=== PATIENT | female | born 1995 | race Native Hawaiian/Other Pacific Islander ===

== ENCOUNTER → 2018-11-03 | Outpatient (CLI) | payer OTHER, BC ==
[~2018-11-03] MED LIST: DOCU100 PO; HPA LANOLIN40 GM TP; IBUP800 PO; OXYACE5T PO; Verotin-Gr Cap1 EACH PO
[2018-11-06 06:07] LABS: CHLAMYDIA TRACHOMATIS, NAA Negative (Negative); NEISSERIA GONORRHOEAE, NAA Negative (Negative)
== END | disposition home or self-care (01) ==
LOC: LAB 11:20 → LAB SHORT 11:20
PROVIDERS: Advanced Practice Midwife
DX: Z11.3 Encounter for screening for infections with a predominantly sexual mode of transmission (principal)
CPT/HCPCS: 87491; 87591

== ENCOUNTER 2019-01-15 23:04 | Emergency (ER) | payer OTHER, BC ==
[~2019-01-15] VITALS: Ht 167.6 cm; Wt 79.8 kg
== END 2019-01-16 01:10 | disposition home or self-care (01) ==
LOC: ER 23:04
DX: S61.011A Laceration without foreign body of right thumb without damage to nail, initial encounter (principal); W25.XXXA Contact with sharp glass, initial encounter
CPT/HCPCS: 12001; 90471; 90714; 99282-25

== ENCOUNTER → 2019-01-17 | Outpatient (CLI) | payer OTHER, BC ==
[2019-01-18 10:28] LABS: Candida species (DNA Probe) Negative (NEGATIVE); G. vaginalis (DNA Probe) Positive (NEGATIVE); T. vaginalis (DNA Probe) Negative (NEGATIVE)
== END | disposition home or self-care (01) ==
LOC: LAB 14:49 → LAB SHORT 14:49
PROVIDERS: Advanced Practice Midwife
DX: N76.0 Acute vaginitis (principal)
CPT/HCPCS: 87480; 87510; 87660

== ENCOUNTER → 2019-02-23 | Outpatient (CLI) | payer OTHER, BC ==
[2019-02-23 13:37] LABS: Hematocrit 36.4 % (33.0-51.0); Hemoglobin 12.2 g/dL (11.5-16.0)
== END | disposition home or self-care (01) ==
LOC: LAB SHORT 11:00 → LAB 11:00
PROVIDERS: Obstetrics & Gynecology
DX: Z34.81 Encounter for supervision of other normal pregnancy, first trimester (principal)
CPT/HCPCS: 82950; 85014; 85018

== ENCOUNTER → 2019-03-09 | Outpatient (CLI) | payer OTHER, BC ==
[2019-03-10 11:35] LABS: Candida species (DNA Probe) Negative (NEGATIVE); G. vaginalis (DNA Probe) Negative (NEGATIVE); T. vaginalis (DNA Probe) Negative (NEGATIVE)
== END | disposition home or self-care (01) ==
LOC: LAB 19:19 → LAB SHORT 19:19
PROVIDERS: Advanced Practice Midwife
DX: N76.0 Acute vaginitis (principal)
CPT/HCPCS: 87480; 87510; 87660

== ENCOUNTER → 2019-04-20 | Outpatient (CLI) | payer OTHER, BC | END | disposition home or self-care (01) | LOC: LAB SHORT 14:10 → LAB 14:10 | DX: Z34.93 Encounter for supervision of normal pregnancy, unspecified, third trimester (principal) | CPT/HCPCS: 87081; 87653 ==

== ENCOUNTER 2019-05-17 19:50 | Inpatient (IN) | payer OTHER, BC ==
[~2019-05-17] VITALS: Ht 167.6 cm; Wt 96.8 kg
[2019-05-17] MEDS ORDERED: PRENATAL FORMU1 EAC3 PO (20:32)
[2019-05-17 21:13] LABS: BASOPHILS ABSOLUTE AUTO 0.06 K/mm3 (0.00-0.23); BASOPHILS PERCENT AUTO 0 % (0-2); EOSINOPHILS ABSOLUTE AUTO 0.07 K/mm3 (0.00-0.68); EOSINOPHILS PERCENT AUTO 1 % (0-6); Hematocrit 36.5 % (33.0-51.0); Hemoglobin 11.9 g/dL (11.5-16.0); IMMATURE GRAN ABSOLUTE AUTO 0.28 K/mm3 (0.00-0.10); IMMATURE GRAN PERCENT AUTO 2 % (0-1); LYMPHOCYTES ABSOLUTE AUTO 3.52 K/mm3 (0.84-5.20); LYMPHOCYTES PERCENT AUTO 23 % (21-46); MONOCYTES ABSOLUTE AUTO 1.16 K/mm3 (0.16-1.47); MONOCYTES PERCENT AUTO 8 % (4-13); Mean Corpuscular HGB 28.6 pg (26.0-34.0); Mean Corpuscular HGB Conc 32.6 g/dL (31.5-36.5); Mean Corpuscular Volume 88 fL (80-100); Mean Platelet Volume 11.4 fL (9.1-12.4); NEUTROPHILS ABSOLUTE AUTO 10.02 K/mm3 (1.96-9.15); NEUTROPHILS PERCENT AUTO 66 % (41-73); Platelet Count 246 K/mm3 (150-400); RDW Coefficient Variation 13.7 % (11.7-14.2); RDW Standard Deviation 43.7 fL (35.1-46.3); Red Blood Cell Count 4.16 M/mm3 (3.80-5.20); White Blood Cell Count 15.11 K/mm3 (4.00-11.30)
[2019-05-19 05:30] LABS: Hematocrit 31.6 % (33.0-51.0); Mean Corpuscular HGB Conc 31.6 g/dL (31.5-36.5); Mean Corpuscular Volume 89 fL (80-100); Mean Platelet Volume 10.9 fL (9.1-12.4); Platelet Count 210 K/mm3 (150-400); RDW Coefficient Variation 13.7 % (11.7-14.2); RDW Standard Deviation 44.5 fL (35.1-46.3); Red Blood Cell Count 3.57 M/mm3 (3.80-5.20); White Blood Cell Count 14.91 K/mm3 (4.00-11.30)
[2019-05-19] MEDS ORDERED: IBU800 M1 PO (12:09)
--- NOTE | 2019-05-19 14:57 | NUR ---
CONSULT. MOM IS EXPERIECED WITH BF AND FEELS BABY IS DOING WELL, HEARING SOME SWALLOWS DURING FEEDING. INSTRUCT IN CHANGES TO EXPECT DURING THE FIRST WEEK WITH BABY AND WITH FEEDINGS. BABY ASLEEP IN [facility].
== END 2019-05-19 16:09 | disposition home or self-care (01) | DRG 807 ==
LOC: BC 19:50
PROVIDERS: ADMIT Advanced Practice Midwife
PROC: 10E0XZZ Delivery of Products of Conception, External Approach (ICD-10-PCS; principal; 2019-05-18)
PROC: 10907ZC Drainage of Amniotic Fluid, Therapeutic from Products of Conception, Via Natural or Artificial Opening (ICD-10-PCS; 2019-05-18)
DX: O99.824 Streptococcus B carrier state complicating childbirth (principal); Z37.0 Single live birth; Z3A.40 40 weeks gestation of pregnancy; O76 Abnormality in fetal heart rate and rhythm complicating labor and delivery; O69.81X0 Labor and delivery complicated by cord around neck, without compression, not applicable or unspecified
CPT/HCPCS: 36415; 85025; 85027; J0290; J1885; J2210; J2590; J3010; J7030; J7120

== ENCOUNTER 2021-07-14 13:00 | Inpatient (IN) | payer OTHER, BC ==
[~2021-07-14] VITALS: Ht 167.6 cm; Wt 90.9 kg
[~2021-07-14 13:00] MED LIST changes: +FAMO20 PO; +IBU800 M1 PO; +Macrobid 100 M100 MG PO; +PRENATAL FORMU1 EAC3 PO
[2021-07-14 13:58] LABS: BASOPHILS ABSOLUTE AUTO 0.02 K/mm3 (0.00-0.23); BASOPHILS PERCENT AUTO 0 % (0-2); EOSINOPHILS ABSOLUTE AUTO 0.01 K/mm3 (0.00-0.68); EOSINOPHILS PERCENT AUTO 0 % (0-6); Hematocrit 34.6 % (33.0-51.0); Hemoglobin 11.5 g/dL (11.5-16.0); IMMATURE GRAN ABSOLUTE AUTO 0.04 K/mm3 (0.00-0.10); IMMATURE GRAN PERCENT AUTO 1 % (0-1); LYMPHOCYTES ABSOLUTE AUTO 1.58 K/mm3 (0.84-5.20); LYMPHOCYTES PERCENT AUTO 25 % (21-46); MONOCYTES ABSOLUTE AUTO 0.37 K/mm3 (0.16-1.47); MONOCYTES PERCENT AUTO 6 % (4-13); Mean Corpuscular HGB 27.6 pg (26.0-34.0); Mean Corpuscular HGB Conc 33.2 g/dL (31.5-36.5); Mean Corpuscular Volume 83 fL (80-100); Mean Platelet Volume 11.6 fL (9.1-12.4); NEUTROPHILS ABSOLUTE AUTO 4.34 K/mm3 (1.96-9.15); NEUTROPHILS PERCENT AUTO 68 % (41-73); Platelet Count 180 K/mm3 (150-400); RDW Coefficient Variation 14.4 % (11.7-14.2); RDW Standard Deviation 43.2 fL (35.1-46.3); Red Blood Cell Count 4.16 M/mm3 (3.80-5.20); White Blood Cell Count 6.36 K/mm3 (4.00-11.30)
[2021-07-14 15:41] LABS: Influenza A, PCR NEGATIVE (NEGATIVE); Influenza B, PCR NEGATIVE (NEGATIVE); Resp Syncytial Virus, PCR NEGATIVE (NEGATIVE)
[2021-07-14 16:25] LABS: SARS-Cov-2 (COVID-19) PCR, MMC POSITIVE (NEGATIVE)
[2021-07-15 05:48] LABS: BASOPHILS ABSOLUTE AUTO 0.02 K/mm3 (0.00-0.23); BASOPHILS PERCENT AUTO 0 % (0-2); EOSINOPHILS ABSOLUTE AUTO 0.01 K/mm3 (0.00-0.68); EOSINOPHILS PERCENT AUTO 0 % (0-6); Hematocrit 28.9 % (33.0-51.0); Hemoglobin 9.4 g/dL (11.5-16.0); IMMATURE GRAN ABSOLUTE AUTO 0.06 K/mm3 (0.00-0.10); IMMATURE GRAN PERCENT AUTO 1 % (0-1); LYMPHOCYTES ABSOLUTE AUTO 2.47 K/mm3 (0.84-5.20); LYMPHOCYTES PERCENT AUTO 28 % (21-46); MONOCYTES ABSOLUTE AUTO 0.61 K/mm3 (0.16-1.47); MONOCYTES PERCENT AUTO 7 % (4-13); Mean Corpuscular HGB 27.5 pg (26.0-34.0); Mean Corpuscular HGB Conc 32.5 g/dL (31.5-36.5); Mean Corpuscular Volume 85 fL (80-100); Mean Platelet Volume 11.7 fL (9.1-12.4); NEUTROPHILS ABSOLUTE AUTO 5.64 K/mm3 (1.96-9.15); NEUTROPHILS PERCENT AUTO 64 % (41-73); Platelet Count 146 K/mm3 (150-400); RDW Coefficient Variation 14.2 % (11.7-14.2); RDW Standard Deviation 43.2 fL (35.1-46.3); Red Blood Cell Count 3.42 M/mm3 (3.80-5.20); White Blood Cell Count 8.81 K/mm3 (4.00-11.30)
[2021-07-15] MEDS ORDERED: IBUP800 PO (11:46)
--- NOTE | 2021-07-15 12:10 | NUR ---
Printed d/c instructions and teaching reviewed w/pt. questions answered to pt's satisfaction. Pt declined PPFU appointment at [facility], instructions about when to call MD or [facility] reviewed, pt verbalized understanding. Will prepare for discharge home after calling prescription to pharmacy of choice.
--- NOTE | 2021-07-15 13:15 | NUR ---
No acute changes throughout shift. Pt d/c'd home ambulatory to care of sister.
== END 2021-07-15 13:20 | disposition home or self-care (01) | DRG 805 ==
LOC: OBS 13:00 → BC 13:14 → OBS 13:33 → BC 13:34
PROVIDERS: ADMIT Obstetrics & Gynecology
PROC: 10E0XZZ Delivery of Products of Conception, External Approach (ICD-10-PCS; principal; 2021-07-14)
PROC: 8E0ZXY6 Isolation (ICD-10-PCS; 2021-07-14)
DX: O60.14X0 Preterm labor third trimester with preterm delivery third trimester, not applicable or unspecified (principal); U07.1 COVID-19; Z37.2 Twins, both liveborn; D62 Acute posthemorrhagic anemia; O98.52 Other viral diseases complicating childbirth; O30.043 Twin pregnancy, dichorionic/diamniotic, third trimester; O99.62 Diseases of the digestive system complicating childbirth; Z3A.36 36 weeks gestation of pregnancy; K21.9 Gastro-esophageal reflux disease without esophagitis; O99.02 Anemia complicating childbirth; O99.824 Streptococcus B carrier state complicating childbirth
CPT/HCPCS: 0241U; 36415; 51701; 51702; 85025; 86850; 86900; 86901; A9270; J0290; J0690; J1885; J2001; J2210; J2590; J3010; J7120

== ENCOUNTER → 2022-09-08 | Outpatient (CLI) | payer OTHER, BC | END | disposition home or self-care (01) | LOC: LAB SHORT 16:50 → LAB 16:50 | PROVIDERS: Family Medicine | DX: Z01.419 Encounter for gynecological examination (general) (routine) without abnormal findings (principal) | CPT/HCPCS: G0145 ==

== ENCOUNTER 2024-07-03 06:23 | Day surgery (SDC) | payer BC ==
[2024-07-03] VITALS (8 sets, daily range): BP systolic 92–135; BP diastolic 59–85
[~2024-07-03] VITALS: Ht 165.1 cm; Wt 83.5 kg
[~2024-07-03 06:23] MED LIST changes: +BENADRYL25 MG PO; +Flonase 0.05% N16 GM
[2024-07-03] MEDS ORDERED: CeFAZolin Sodium 2,000 MG in NS 100 ML IV SCH (06:25)
[2024-07-03] MEDS ORDERED: Lactated Ringer's 1,000 ML IV SCH (06:25)
[2024-07-03] MEDS ORDERED: NUVARING VAGIN1 EAC1 VG (06:39)
[2024-07-03] MEDS ORDERED: Bupivacaine 0.5% HCl 5 MG/ML 30MLVIAL ONE (07:08)
--- NOTE | 2024-07-03 07:15 | NUR ---
Ambulatory in Day Surgery WITH STEADY GAIT. Pre-Op teaching done. Pt verbalizes understanding. History, Chart, Medications and Allergies reviewed before start of procedure. Patient States Post-Procedure ride home has been arranged WITH MOTHER. BELONGINS PLACED UNDER GURN INCLUDING CELL PHONE. CONTACTS REMAIN IN PLACE PER PT. REPORTS "SLEEPING IN THEM AT HOME". MOTHER AT BEDSIDE.
[2024-07-03] MEDS ORDERED: FentaNYL Citrate 50 MCG/ML 2 ML Injection ONE (07:17)
[2024-07-03] MEDS ORDERED: propofoL 20 ML IV ONE (07:17)
[2024-07-03] MEDS ORDERED: Midazolam HCl 1MG / ML 2ML Vial IV ONE (07:20)
[2024-07-03] MEDS ORDERED: Lidocaine HCl 2% 20 ML MDV ONE (07:23)
[2024-07-03] MEDS ORDERED: Ondansetron HCl 2 MG / ML 2ML Vial ONE (07:30)
[2024-07-03] MEDS ORDERED: Dexamethasone Sod Phos 10 MG/ML 1ML VIAL ONE (07:30)
[2024-07-03] MEDS ORDERED: Sugammadex Sodium 200 MG/2ML SDV (100 MG/ML) ONE (08:07)
[2024-07-03] MEDS ORDERED: Ketorolac Tromethamine 30mg Vial ONE (08:07)
[2024-07-03] MEDS ORDERED: Midazolam HCl 1MG / ML 2ML Vial ONE (08:42)
[2024-07-03] MEDS ORDERED: HYDROcodone 5-APAP 325 TAB PO PRN (08:55)
[2024-07-03] MEDS ORDERED: Rocuronium Bromide 10 MG/ML 5ML Injection IV ONE (09:35)
--- NOTE | 2024-07-03 09:50 | NUR ---
Patient up to Ambulate independently. Gait steady. Discharge instructions reviewed with patient. Patient verbalizes understanding. Copy given to patient to take home, WE[facility] FAMILY. Patient States Post-Procedure ride home has been arranged. Discharged via wheelchair to private car for ride home. PT TOLERATING PO. REPORTS READY TO GO HOME. INCISIONS C/D/I. SENT WITH ICE PACK.
== END 2024-07-03 09:50 | disposition home or self-care (01) ==
LOC: ORSCMMR 06:23 → ORD 07:00 → ORSCMMR 07:30
PROVIDERS: Surgery
PROC: 0FT44ZZ Resection of Gallbladder, Percutaneous Endoscopic Approach (ICD-10-PCS; principal; 2024-07-03 07:30)
DX: K80.10 Calculus of gallbladder with chronic cholecystitis without obstruction (principal)
CPT/HCPCS: 88304; A9270; J0690; J1100; J1885; J2250; J2405; J2704; J3010; J7120